=== PATIENT | female | born 1985 ===

== ENCOUNTER 2018-03-21 08:33 | Day surgery (SDC) | payer OTHER ==
[2017-02-20 08:26] VITALS: BMI 32.9
[2018-03-21 09:35] VITALS: TEMP 97.8; O2SAT 100
[2018-03-21] MEDS ORDERED: Lactated Ringer's 500 ML IV ONE ×2 (11:02)
[2018-03-21] MEDS ORDERED: Propofol 10 mg/ml Inj (20 ML) ONE ×2 (11:12→11:18)
--- NOTE | 2018-03-21 11:20 | CP.SDSHP ---
Same Day Surgery H & P - History Proposed Procedure: EGD Pre-Op Diagnosis: heartburn - Previous Medical/Surgical History Cardiac: Hypertension Endocrine/Metabolic: Thyroid Disease Neuro: Headaches - Allergies Allergies: Allergies No Known Allergies Allergy (Verified 02/01/16 02:26) - Physical Exam General Appearance: NAD Vital Signs: Vital Signs 03/21/18 08:44 Temperature 97.8 F Pulse Rate 96 H Respiratory 16 Rate Blood Pressure 142/75 O2 Sat by Pulse 100 Oximetry Mental Status: Alert & Oriented x3 Neuro: WNL Heart: WNL Lungs: WNL GI: WNL - {Optional Preform as Required} Abdomen: WNL - Impression Pt. Evaluated Today:Candidate for Anesthesia & Procedure: Yes - Date & Time Date: 03/21/18 Time: 11:08 Short Stay Discharge - Short Stay Discharge Admitting Diagnosis/Reason for Visit: GASTRO-ESOPHAGEAL REFLUX DISEASE WITHOUT ESOPHAGIT Disposition: HOME/ ROUTINE
[2018-03-21 12:48] VITALS: BP 112/68; PULSE 75; RESP 19
== END 2018-03-21 12:30 | disposition home or self-care (01) ==
LOC: C.ENDO 08:33
PROVIDERS: ATTEND Internal Medicine Gastroenterology
DX: K29.70 Gastritis, unspecified, without bleeding (principal); K44.9 Diaphragmatic hernia without obstruction or gangrene
CPT/HCPCS: 43239; 84703; 88305; 88312; 88313; 88342; J2001; J2704; J7120